=== PATIENT | male | born 1990 | race Caucasian/White ===

== ENCOUNTER 2021-03-03 10:07 | Outpatient (CLI) | payer OTHER, SELFPAY ==
--- NOTE | 2021-03-03 11:15 | NEURO_ITS ---
Impression: # Complains of bilateral wrist pain and finger numbness at times. # Subtle evolving Carpal Tunnel Syndrome. # No ulnar neuropathy. # Normal needle/EMG exam. Nerve Conduction Studies Anti Sensory Summary Table Stim Site NR Peak (ms) P-T Amp (?V) Site1 Site2 Delta-P (ms) Dist (cm) Cecilio (m/s) Left Median Anti Sensory (2-3nd Digit) Wrist 3.0 75.6 Wrist 2-3nd Digit 3.0 14.0 47 Wrist 3.0 92.8 Wrist 2-3nd Digit 3.0 14.0 47 Right Median Anti Sensory (2-3nd Digit) Wrist 2.8 91.2 Wrist 2-3nd Digit 2.8 14.0 50 Wrist 2.8 77.5 Wrist 2-3nd Digit 2.8 14.0 50 Left Radial Anti Sensory (Base 1st Digit) Wrist 2.0 36.2 Wrist Base 1st Digit 2.0 0.0 Right Radial Anti Sensory (Base 1st Digit) Wrist 2.3 20.5 Wrist Base 1st Digit 2.3 0.0 Left Ulnar Anti Sensory (5th Digit) Wrist 2.6 71.8 Wrist 5th Digit 2.6 14.0 54 Right Ulnar Anti Sensory (5th Digit) Wrist 2.3 46.2 Wrist 5th Digit 2.3 14.0 61 Motor Summary Table Stim Site NR Onset (ms) O-P Amp (mV) Site1 Site2 Delta-0 (ms) Dist (cm) Cecilio (m/s) Left Median Motor (Abd Poll Brev) Wrist 3.4 6.8 Elbow Wrist 5.3 32.0 60 Elbow 8.7 2.9 Right Median Motor (Abd Poll Brev) Wrist 3.6 4.9 Elbow Wrist 5.2 31.0 60 Elbow 8.8 5.1 Left Ulnar Motor (Abd Dig Minimi) Wrist 2.5 7.6 A Elbow Wrist 5.7 34.0 60 A Elbow 8.2 6.8 Right Ulnar Motor (Abd Dig Minimi) Wrist 2.5 6.2 A Elbow Wrist 5.7 34.0 60 A Elbow 8.2 5.9 F Wave Studies NR F-Lat (ms) L-R F-Lat (ms) Left Median (Mrkrs) (Abd Poll Brev) 30.53 0.76 Right Median (Mrkrs) (Abd Poll Brev) 29.77 0.76 Left Ulnar (Mrkrs) (Abd Dig Min) 30.45 0.80 Right Ulnar (Mrkrs) (Abd Dig Min) 29.65 0.80 EMG Side Muscle Nerve Root Ins Act Fibs Amp Dur Recrt Comment Right 1stDorInt Ulnar C8-T1 Nml Nml Nml Nml Nml Right Ext Indicis Radial (Post Int) C7-8 Nml Nml Nml Nml Nml Right Ext Digitorum Radial (Post Int) C7-8 Nml Nml Nml Nml Nml Right BrachioRad Radial C5-6 Nml Nml Nml Nml Nml Right PronatorTeres Median C6-7 Nml Nml Nml Nml Nml Right Abd Poll Brev Median C8-T1 Nml Nml Nml Nml Nml Left 1stDorInt Ulnar C8-T1 Nml Nml Nml Nml Nml Left Ext Indicis Radial (Post Int) C7-8 Nml Nml Nml Nml Nml Left Ext Digitorum Radial (Post Int) C7-8 Nml Nml Nml Nml Nml Left BrachioRad Radial C5-6 Nml Nml Nml Nml Nml Left PronatorTeres Median C6-7 Nml Nml Nml Nml Nml Left Abd Poll Brev Median C8-T1 Nml Nml Nml Nml Nml MTDD
== END 2021-03-03 10:08 | disposition home or self-care (01) ==
PROVIDERS: Visit Provider Nurse Practitioner Family
DX: G56.02 Carpal tunnel syndrome, left upper limb (principal)
CPT/HCPCS: 95886; 95911

== ENCOUNTER 2024-05-17 12:17 | Outpatient (CLI) | payer OTHER, SELFPAY ==
--- NOTE | ~2024-05-17 | XR_ITS ---
Lumbosacral Spine: AP and lateral views Clinical History: Pain Findings: The normal lordotic curve is maintained. The vertebral bodies and posterior elements are i ntact. There is mild degenerative disc change from L1 through L3. There is mild facet arthropathy. Th e sacroiliac joints are normally outlined. Impression: Mild degenerative spondylosis in the lumbar spine. Reviewed, dictated and finalized at location . Impression: Mild degenerative spondylosis in the lumbar spine.
--- NOTE | ~2024-05-17 | XR_ITS ---
EXAMINATION: XR thoracic spine 3V DATE: 05/17/2024 12:56 INDICATION: Thoracic back pain. TECHNIQUE: 3 views of thoracic spine were obtained. COMPARISON: None. FINDINGS: There is 11 degrees dextroscoliosis of thoracic spine. Vertebral body heights are normal. I ntervertebral disc heights are normal. There are endplate osteophytes at multiple levels. IMPRESSION: 1. Mild thoracic spondylosis. 2. Thoracic dextroscoliosis. Reviewed, dictated and finalized at location A.
== END 2024-05-17 12:18 | disposition home or self-care (01) ==
DX: M47.816 Spondylosis without myelopathy or radiculopathy, lumbar region (principal); M54.41 Lumbago with sciatica, right side; M47.814 Spondylosis without myelopathy or radiculopathy, thoracic region; M41.84 Other forms of scoliosis, thoracic region
CPT/HCPCS: 72072; 72100